=== PATIENT | male | born 1965 | race African-American/Black ===

== ENCOUNTER 2023-10-19 15:23 | Observation (INO) ==
[2023-10-19] MEDS: Iodixanol (CONTRAST) 320 MG/ML 100 ML SDV IV ONE (15:39)
[2023-10-19 16:10] LABS: ABS Basophils 0.1 10^3/uL (0.0-0.1); ABS Eosinophils 0.1 10^3/uL (0.0-0.5); ABS Lymphocytes 1.3 10^3/uL (1.0-4.8); ABS Monocytes 0.4 10^3/uL (0.0-1.1); Eosinophil % 1.9 %; Hematocrit 32.9 % (38-53); Hemoglobin 10.4 g/dL (13.2-16.3); Lymphocyte % 26.9 %; Mean Corpuscular Hemoglobin 25.9 pg (27-33); Mean Corpuscular Hgb Conc 31.7 g/dL (31-36); Mean Corpuscular Volume 81.7 fL (80-97); Mean Platelet Volume 8.2 fL (7.5-11.2); Platelet Count 259 10^3/uL (150-450); Red Blood Count 4.03 10^6/uL (4.06-5.63); Red Cell Distribution Width 16.2 % (12-17)
[2023-10-19 16:24] LABS: Activated Partial Thrombo Time 32.7 seconds (26.0-38.0); INR 1.29 (0.83-1.13)
[2023-10-19 16:34] LABS: ALT 7 U/L (7-52); Albumin 4.1 g/dL (3.2-5.2); Albumin/Globulin Ratio 1.3 (1-3); Alkaline Phosphatase 100 U/L (35-149); Blood Urea Nitrogen 21 mg/dL (6-24); C Reactive Protein 4.96 mg/L (<8.01); CO2 Carbon Dioxide 24 mmol/L (22-32); Chloride 106 mmol/L (101-111); Cholesterol 182 mg/dL; Creatinine, Serum 1.24 mg/dL (0.67-1.17); Globulin 3.2 g/dL (2-4); Glucose 91 mg/dL (70-100); HDL Cholesterol 43.9 mg/dL; LDL Cholesterol 94 mg/dL; Sodium 136 mmol/L (135-145); Total Bilirubin 0.3 mg/dL (0.2-1.0); Total Protein 7.3 g/dL (6.4-8.9); Triglycerides 223 mg/dL; eGFR CKD-EPI 68.2 (>60)
[2023-10-19 16:35] LABS: Anion Gap 6 mmol/L (2-16)
[2023-10-19 19:22] LABS: Urine Appearance Clear; Urine Bacteria Absent /HPF (Absent); Urine Bilirubin Negative (Negative); Urine Blood 1+ (Negative); Urine Color Light-Yellow; Urine Glucose Negative (Negative); Urine Ketones Negative (Negative); Urine Nitrite Negative (Negative); Urine Protein 1+ (>=30 mg/dL) (Negative); Urine Red Blood Cell 3+(>10/hpf) /HPF (0-Trace); Urine Specific Gravity >1.050 (1.002-1.030); Urine Squamous Epithelial Cell Present /HPF (Absent); Urine Urobilinogen Negative (Negative); Urine White Blood Cell 3+(>20/hpf) /HPF (0-Trace)
[2023-10-19] MEDS: Piperacillin/Tazobac 3.375 BAG 3.375 GM/100 ML BAG IV ONE (19:28)
[2023-10-19] MEDS: Morphine 4 MG/ML VIAL (1 ml) IV ONE (20:02)
[2023-10-19 20:23] LABS: Folate 18.35 ng/mL (5.90-24.80)
[2023-10-19 20:24] LABS: Vitamin B12 922 pg/mL (180-914)
[2023-10-19] MEDS: Buprenorp/Nalox 4-1 MG FILM SL SCH (20:35)
[2023-10-19] MEDS: Lactated Ringers 1000 ml BAG 1,000 ML IV ONE (20:50)
[2023-10-19 21:29] LABS: Urine Benzodiazepine Screen None Detected (None Detect); Urine Cannabinoids Screen None Detected (None Detect); Urine Opiates Screen None Detected (None Detect)
[2023-10-20] MEDS: Metoclopramide 5 MG/ML VIAL (10 mg) IV SLOW PU ONE (01:27)
[2023-10-20] MEDS: Polyethylene Glycol 3350 17 GM PACKET PO SCH (08:52)
[2023-10-20 13:09] LABS: ABS Basophils 0.1 10^3/uL (0.0-0.1); ABS Eosinophils 0.2 10^3/uL (0.0-0.5); ABS Lymphocytes 1.4 10^3/uL (1.0-4.8); ABS Monocytes 0.4 10^3/uL (0.0-1.1); ABS Neutrophils 2.7 10^3/uL (1.5-7.6); Eosinophil % 3.6 %; Hematocrit 33.8 % (38-53); Hemoglobin 10.8 g/dL (13.2-16.3); Lymphocyte % 29.6 %; Mean Corpuscular Hemoglobin 25.6 pg (27-33); Mean Corpuscular Hgb Conc 31.8 g/dL (31-36); Mean Corpuscular Volume 80.3 fL (80-97); Mean Platelet Volume 8.2 fL (7.5-11.2); Nucleated Red Blood Cells % 0.1 %/100WBC (0.0-0.8); Platelet Count 249 10^3/uL (150-450); Red Blood Count 4.21 10^6/uL (4.06-5.63); Red Cell Distribution Width 15.7 % (12-17); White Blood Count 4.7 10^3/uL (3.6-10.2)
[2023-10-20 13:39] LABS: Calcium 9.2 mg/dL (8.6-10.3); Creatinine, Serum 1.2 mg/dL (0.67-1.17); Potassium 4.3 mmol/L (3.5-5.0)
[2023-10-21 05:56] VITALS: BP 109/69
== END 2023-10-21 13:05 ==
LOC: ED 15:23 → EDHOLD 18:00 → INTOOBSV 18:00 → SUATTDRO 18:00 → MEDTELE 10-20 03:05
PROVIDERS: ADMIT Hospitalist; ATTEND Student in an Organized Health Care Education/Training Program

== ENCOUNTER 2023-11-06 21:48 | Observation (INO) ==
[2023-11-06 22:53] LABS: ABS Basophils 0.1 10^3/uL (0.0-0.1); ABS Eosinophils 0.1 10^3/uL (0.0-0.5); ABS Lymphocytes 1.1 10^3/uL (1.0-4.8); ABS Monocytes 0.3 10^3/uL (0.0-1.1); ABS Nucleated RBC 0.01 10^3/ul; Eosinophil % 1.1 %; Hemoglobin 10.5 g/dL (13.2-16.3); Lymphocyte % 19.2 %; Mean Corpuscular Hemoglobin 25.6 pg (27-33); Mean Corpuscular Hgb Conc 31.9 g/dL (31-36); Mean Corpuscular Volume 80.4 fL (80-97); Mean Platelet Volume 7.8 fL (7.5-11.2); Nucleated Red Blood Cells % 0.2 %/100WBC (0.0-0.8); Platelet Count 274 10^3/uL (150-450); Red Cell Distribution Width 15.1 % (12-17); White Blood Count 5.5 10^3/uL (3.6-10.2)
[2023-11-06 23:32] LABS: INR 1.26 (0.83-1.13)
[2023-11-06 23:54] LABS: Magnesium 1.8 mg/dL (1.9-2.7)
[2023-11-07] MEDS: Acetaminophen IV 1 GM/100ML 1,000 MG/100 ML BAG IV ONE (00:14)
[2023-11-07 00:15] LABS: Albumin 4.2 g/dL (3.2-5.2); Albumin/Globulin Ratio 1.4 (1-3); Calcium 8.9 mg/dL (8.6-10.3); Creatinine, Serum 1.13 mg/dL (0.67-1.17); Globulin 3.1 g/dL (2-4); Potassium 4.1 mmol/L (3.5-5.0); Total Bilirubin 0.2 mg/dL (0.2-1.0); Total Protein 7.3 g/dL (6.4-8.9); eGFR CKD-EPI 76.3 (>60)
[2023-11-07 00:39] LABS: High Sensitivity Troponin 1 Hr 3 pg/mL (<20)
[2023-11-07] MEDS: Magnesium Sulfate 2 gm BAG 2 GM/50 ML BAG IVPB ONE (02:08)
[2023-11-07] MEDS: Morphine 2 MG/ML SYRINGE IV ONE (04:19)
[2023-11-07] MEDS: Calcium Carb (TUMS) 500 mg CHEW TAB PO ONE (04:19)
[2023-11-07 10:32] LABS: Urine Benzodiazepine Screen None Detected (None Detect); Urine Cannabinoids Screen None Detected (None Detect); Urine Opiates Screen Presumptive Positive (None Detect)
[2023-11-07 15:41] LABS: Folate 13.97 ng/mL (5.90-24.80)
[2023-11-08 06:53] LABS: ABS Basophils 0.1 10^3/uL (0.0-0.1); ABS Eosinophils 0.1 10^3/uL (0.0-0.5); ABS Lymphocytes 1.9 10^3/uL (1.0-4.8); ABS Monocytes 0.4 10^3/uL (0.0-1.1); Eosinophil % 2.7 %; Hematocrit 32.5 % (38-53); Hemoglobin 10.5 g/dL (13.2-16.3); Mean Corpuscular Hgb Conc 32.5 g/dL (31-36); Mean Corpuscular Volume 80.1 fL (80-97); Mean Platelet Volume 7.9 fL (7.5-11.2); Platelet Count 278 10^3/uL (150-450); Red Blood Count 4.06 10^6/uL (4.06-5.63); Red Cell Distribution Width 15.1 % (12-17); White Blood Count 4.5 10^3/uL (3.6-10.2)
[2023-11-08 07:06] LABS: Calcium 9.3 mg/dL (8.6-10.3); Creatinine, Serum 1.21 mg/dL (0.67-1.17); Magnesium 2.1 mg/dL (1.9-2.7); Potassium 4.7 mmol/L (3.5-5.0); eGFR CKD-EPI 70.3 (>60)
[2023-11-08] MEDS ORDERED: Regadenoson 0.4 MG/5 ML SYRINGE ONE (11:53)
[2023-11-08] MEDS ORDERED: Aminophylline 25 MG/ML VIAL ONE (11:53)
[2023-11-08 14:03] VITALS: BP 133/92
== END 2023-11-08 16:40 | disposition home or self-care (01) ==
LOC: ED 21:48 → EDHOLD 21:48 → MEDTELE 11-07 14:11
PROVIDERS: ADMIT Internal Medicine; ATTEND Hospitalist